=== PATIENT | female | born 1965 | race Caucasian/White ===

== ENCOUNTER 2016-11-29 12:18 | Inpatient (IN) | payer OTHER ==
[2016-11-29 13:29] VITALS: BMI 28.1
--- NOTE | 2016-11-29 15:28 | HP ---
CIWA Score - CIWA Score Nausea/Vomitin Muscle Tremors: 3 Anxiety: 3 Agitation: 3 Paroxysmal Sweats: 3 Orientation: 0-Oriented Tacttile Disturbances: 2-Mild Itch/Numbness/Burn Auditory Disturbances: 0-None Visual Disturbances: 0-None Headache: 2-Mild CIWA-Ar Total Score: 19 Admission ROS BHS - HPI Chief Complaint: I NEED TO STOP USING ALCOHOL AND I NEED HELP Allergies/Adverse Reactions: Allergies Allergy/AdvReac Type Severity Reaction Status Date / Time No Known Allergies Allergy Verified 01/20/15 20:10 History of Present Illness: 51 Y/O F PT WITH H/O CIRRHOSIS , LIVER MASS, ASTHMA , CHRONIC ALCOHOLISM AND HEROIN ABUSE SEEKING DETOX. Exam Limitations: No Limitations - Ebola screening Have you traveled outside of the country in the last 21 days: No Have you had contact with anyone from an Ebola affected area: No Have you been sick,other than usual withdrawal symptoms: No Do you have a fever: No - Review of Systems Constitutional: Malaise, Changes in sleep, Weakness EENT: reports: Dental Problems Respiratory: reports: Shortness of Breath, Wheezing Cardiac: reports: No Symptoms Reported GI: reports: Diarrhea, Nausea : reports: No Symptoms Reported Musculoskeletal: reports: No Symptoms Reported Integumentary: reports: No Symptoms Reported Neuro: reports: Headache, Tremors, Weakness Endocrine: reports: No Symptoms Reported Hematology: reports: No Symptoms Reported Psychiatric: reports: Depressed Other Systems: Reviewed and Negative Patient History - Patient Medical History Hx Anemia: No Hx Asthma: Yes (Pt is on MDI for asthma.) Hx Chronic Obstructive Pulmonary Disease (COPD): No Hx Cancer: No Hx Cardiac Disorders: No Hx Congestive Heart Failure: No Hx Hypertension: Yes (NOT ON MEDS AT PRESENT.) Hx Hypercholesterolemia: No Hx Pacemaker: No HX Cerebrovascular Accident: No Hx Seizures: No Hx Dementia: No Hx Diabetes: No Hx Gastrointestinal Disorders: No Hx Liver Disease: Yes Hx Genitourinary Disorders: No Hx Sexually Transmitted Disorders: No Hx Renal Disease (ESRD): No Hx Thyroid Disease: No Hx Human Immunodeficiency Virus (HIV): No Hx Hepatitis C: Yes Hx Depression: Yes Hx Suicide Attempt: No Hx Bipolar Disorder: No Hx Schizophrenia: No - Patient Surgical History Past Surgical History: No Hx Neurologic Surgery: No Hx Cataract Extraction: No Hx Cardiac Surgery: No Hx Lung Surgery: No Hx Breast Surgery: No Hx Breast Biopsy: No Hx Abdominal Surgery: No Hx Appendectomy: No Hx Cholecystectomy: No Hx Genitourinary Surgery: No Hx Section: No Hx Orthopedic Surgery: No Anesthesia Reaction: No - PPD History Previous Implant?: Yes Documented Results: Negative w/proof Implanted On Prior [facility] Admission?: No Date: 01/22/15 - Reproductive History Patient is a Female of Child Bearing Age (11 -55 yrs old): Yes Last Menstrual Period: 09/20/11 Patient : No - Smoking Cessation Smoking history: Current every day smoker Have you smoked in the past 12 months: Yes Aproximately how many cigarettes per day: 6 Cigars Per Day: 0 Hx Chewing Tobacco Use: No Initiated information on smoking cessation: Yes 'Breaking Loose' booklet given: 11/29/16 - Substance & Tx. History Hx Alcohol Use: Yes Hx Substance Use: Yes Substance Use Type: Alcohol, Heroin Hx Substance Use Treatment: Yes - Substances Abused Alcohol Route: Oral Frequency: Daily Amount used: 2 PINTS VODKA/ 3 BEERS Age of first use: 13 Date of Last Use: 11/29/16 Heroin Route: Inhalation Frequency: Daily Amount used: 10 BAGS Age of first use: 15 Date of Last Use: 11/27/16 Family Disease History - Family Disease History Family Disease History: Respiratory: Mother (ASTHMA) Admission Physical Exam S - Vital Signs Vital Signs: Vital Signs - 24 hr 11/29/16 13:27 Temperature 97.5 F L Pulse Rate 110 H Respiratory 20 Rate Blood Pressure 156/77 51 Y/O MF PT AOX3 , RESPONDING APPROPRIATELY BUT APPEARING ANXIOUS ,TIRED , - Physical General Appearance: Yes: Disheveled, Tremorous, Anxious HEENTM: Yes: EOMI, Hearing grossly Normal, Normal Voice, DELFINA Respiratory: Yes: Wheezing, Plerual Rub Breast: Yes: Breast Exam Deferred Cardiology: Yes: Regular Rhythm, S1, S2, Tachycardia Abdominal: Yes: Increased Bowel Sounds, Protuberent, Distended, Mass (TENDER RUQ ) Genitourinary: Yes: Frequency Back: Yes: Decreased Range of Motion Musculoskeletal: Yes: Back pain Extremities: Yes: Pedal Edema 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 intact, Fully Oriented, Alert, Motor Strength 5/5, Normal Response Integumentary: Yes: Moist Lymphatic: Yes: Within Normal Limits, Adenopathy - Diagnostic (1) Anxiety and depression Current Visit: Yes Status: Chronic (2) Asthma Current Visit: Yes Status: Chronic Qualifiers: Asthma severity: moderate persistent Asthma complication type: uncomplicated Qualified Code(s): J45.40 - Moderate persistent asthma, uncomplicated (3) Hepatomegaly Current Visit: Yes Status: Chronic (4) Alcohol dependence with uncomplicated withdrawal Current Visit: Yes Status: Chronic (5) Liver mass Current Visit: Yes Status: Chronic (6) Nicotine dependence Current Visit: Yes Status: Chronic Qualifiers: Nicotine product type: cigarettes Substance use status: uncomplicated Qualified Code(s): F17.210 - Nicotine dependence, cigarettes, uncomplicated (7) Opioid abuse Current Visit: Yes Status: Inactive Comment: NO OPIOIDS IN URINE TOX. Cleared for Admission S - Detox or Rehab [facility] Level of Care: Medically Managed [facility] Breath Alcohol Content Breath Alcohol Content: 0.132 Urine Pregancy Test - Result Urine Test Results: Negative- NO Line Present Urine Drug Screen - Results Drug Screen Negative: No Urine Drug Screen Results: BZO-Benzodiazepines
[2016-11-29] MEDS ORDERED: ACETAMINOPHEN 325 MG TABLET (FP) PO PRN (15:53)
[2016-11-29] MEDS ORDERED: IBUPROFEN 400 MG TABLET (FP) PO PRN (15:53)
[2016-11-29] MEDS ORDERED: hydrOXYzine PAMOATE 25 MG CAPSULE (FP) PO PRN (15:53)
[2016-11-29] MEDS ORDERED: NICOTINE POLACRILEX 2 MG GUM BC PRN (15:53)
[2016-11-29] MEDS ORDERED: chlordiazePOXIDE HCL 25 MG CAPSULE PO PRN (15:53)
[2016-11-29] MEDS ORDERED: MAG HYDROX/AL HYDROX/SIMETH 30 ML UNIT-DOSE CUP PO PRN (15:53)
[2016-11-29] MEDS ORDERED: guaiFENesin/D-METHORPHAN HB 10 ML UNIT-DOSE CUPS PO PRN (15:53)
[2016-11-29] MEDS ORDERED: P-EPHED 60MG/TRIPROLIDI 2.5MG TABLET PO PRN (15:53)
[2016-11-29] MEDS ORDERED: LOPERAMIDE HCL 2 MG CAPSULE PO PRN (15:53)
[2016-11-29] MEDS ORDERED: MENTHOL/PHENOL 1 EACH UD MM PRN (15:53)
[2016-11-29] MEDS ORDERED: MAGNESIUM CITRATE 300 ML BOTTLE PO PRN (15:53)
[2016-11-29] MEDS ORDERED: MAGNESIUM HYDROX 2400MG/30ML ORAL SUSPENSION 30 ML CUP PO PRN (15:53)
[2016-11-29] MEDS ORDERED: diphenhydrAMINE HCL 50 MG CAPSULE PO PRN (15:53)
[2016-11-29] MEDS ORDERED: ALBUTEROL SO4 2.5/IPRATROPIUM 0.5 INH SOL 3 ML VIAL.NEB. NEB PRN (16:01)
[2016-11-29] MEDS ORDERED: ALBUTEROL SO4 6.7 GM HFA INHALER IH PRN (16:01)
[2016-11-29] MEDS ORDERED: FUROSEMIDE 40 MG TABLET (FP) PO ONE (16:45)
[2016-11-29] MEDS ORDERED: SPIRONOLACTONE 25 MG TABLET (FP) PO ONE (16:45)
[2016-11-29] MEDS ORDERED: METHADONE HCL 10 MG TABLET (FOR DETOX USE ONLY) PO ONE ×2 (16:45→23:00)
[2016-11-29] MEDS: chlordiazePOXIDE HCL 25 MG CAPSULE PO SCH ×2 (18:07→22:00)
--- NOTE | 2016-11-29 19:16 | PN ---
BHS Progress Note Note: RECEIVED NURSE REQUESTS PPD X1 CONTINUE DETOX
[2016-11-29] MEDS ORDERED: THIAMINE HCL 100 MG TABLET (FP) PO SCH (22:00)
[2016-11-29] MEDS ORDERED: PANTOPRAZOLE 40 MG TABLET (FP) PO SCH (22:00)
[2016-11-29] MEDS: BUDESONIDE/FORMETEROL FUMARATE 80/4.5 mcg INHALER IH SCH (23:40)
[2016-11-30 04:07] LABS: URINE APPEARANCE CLEAR; URINE BILIRUBIN NEGATIVE (NEGATIVE); URINE BLOOD NEGATIVE (NEGATIVE); URINE COLOR LTYELLOW; URINE GLUCOSE (UA) NEGATIVE (NEGATIVE); URINE KETONE NEGATIVE (NEGATIVE); URINE LEUK ESTERASE NEGATIVE (NEGATIVE); URINE NITRITE NEGATIVE (NEGATIVE); URINE PROTEIN NEGATIVE (NEGATIVE); URINE UROBILINOGEN NEGATIVE E.U./dl (0.2-1.0)
[2016-11-30] MEDS: chlordiazePOXIDE HCL 25 MG CAPSULE PO SCH ×2 (05:29→11:04)
[2016-11-30] MEDS ORDERED: LACTULOSE 20 GM/30 ML UDC (FOR ORAL USE ONLY) PO ONE (08:00)
[2016-11-30 09:55] LABS: MCH 34.1 pg (25.7-33.7); MCHC 33.4 g/dl (32.0-36.0); MEAN CELL VOLUME 101.9 fl (80-96); MEAN PLT VOLUME 9.3 fl (7.5-11.1); RDW 13.9 % (11.6-15.6); WHITE BLOOD COUNT 11.9 K/mm3 (4.0-10.0)
--- NOTE | 2016-11-30 09:56 | PN ---
S Progress Note Note: Pt states I need to leave this place is not for me. pt signed out AMA.
--- NOTE | 2016-11-30 09:58 | DS ---
[facility] Detox Discharge Summary Admission Date: 11/29/16 - History Present History: Alcohol Dependence - Physical Exam Results Vital Signs: Vital Signs Temperature 99.3 F 11/30/16 06:02 Pulse Rate 100 H 11/30/16 06:30 Respiratory Rate 18 11/30/16 06:30 Blood Pressure 145/77 11/30/16 06:02 O2 Sat by Pulse Oximetry (%) - Medication Discharge Medications: Ambulatory Orders NK [No Known Home Medication] 01/22/15 - Diagnosis (1) Alcohol dependence with uncomplicated withdrawal Current Visit: Yes Status: Chronic (2) Anxiety and depression Current Visit: Yes Status: Chronic (3) Asthma Current Visit: Yes Status: Chronic Qualifiers: Asthma severity: moderate persistent Asthma complication type: uncomplicated Qualified Code(s): J45.40 - Moderate persistent asthma, uncomplicated (4) Hepatomegaly Current Visit: Yes Status: Chronic (5) Liver mass Current Visit: Yes Status: Chronic (6) Nicotine dependence Current Visit: Yes Status: Chronic Qualifiers: Nicotine product type: cigarettes Substance use status: uncomplicated Qualified Code(s): F17.210 - Nicotine dependence, cigarettes, uncomplicated (7) Opioid abuse Current Visit: Yes Status: Inactive (8) Bereavement Current Visit: No Status: Acute (9) Alcohol dependence Current Visit: No Status: Chronic (10) Hepatitis C Current Visit: No Status: Chronic (11) Opiate dependence Current Visit: No Status: Chronic - AMA Did Patient Leave Against Medical Advice: Yes (Did not want to continue detox)
[2016-11-30] MEDS ORDERED: METHADONE HCL 10 MG TABLET (FOR DETOX USE ONLY) PO SCH (10:00)
[2016-11-30] MEDS ORDERED: PRENATAL VITAMINS W/ FOLIC ACID TABLET (FP) PO SCH (10:00)
[2016-11-30] MEDS ORDERED: SPIRONOLACTONE 25 MG TABLET (FP) PO SCH (10:00)
[2016-11-30] MEDS ORDERED: FUROSEMIDE 40 MG TABLET (FP) PO SCH (10:00)
[2016-11-30] MEDS ORDERED: NICOTINE 14 MG/24 HOURS TOPICAL PATCH TD SCH (10:00)
[2016-11-30 10:02] VITALS: BP 129/64; PULSE 105; TEMP 98
[2016-11-30 10:37] LABS: ALBUMIN 3.4 g/dl (3.4-5.0); ALK PHOS 306 U/L (45-117); ANION GAP 14 (8-16); BILIRUBIN,TOTAL 1.2 mg/dL (0.2-1.0); CALCIUM 8.9 mg/dL (8.5-10.1); CO2 27 mmol/L (21-32); CREATININE 0.4 mg/dL (0.55-1.02); GLUCOSE,RANDOM 172 mg/dL (74-106); SGOT/AST 92 U/L (15-37); SGPT/ALT 34 U/L (12-78); TOT PROT 7.9 g/dl (6.4-8.2)
[2016-11-30] MEDS: BUDESONIDE/FORMETEROL FUMARATE 80/4.5 mcg INHALER IH SCH (11:04)
--- NOTE | 2016-11-30 11:58 | CONSULT ---
[facility] Psychiatric Consult - Data Date of interview: 11/30/16 Admission source: [facility] Identifying data: Patient not found on the unit.Staff reports that Ms Verduzco has left the program earlier.Not available for a psychiatric interview.
--- NOTE | 2016-11-30 13:41 | EKG ---
Test Reason : Blood Pressure : / mmHG Vent. Rate : 102 BPM Atrial Rate : 102 BPM P-R Int : 154 ms QRS Dur : 066 ms QT Int : 374 ms P-R-T Axes : 053 049 042 degrees QTc Int : 487 ms SINUS TACHYCARDIA OTHERWISE NORMAL ECG WHEN COMPARED WITH ECG OF 29-NOV-2016 17:18, NO SIGNIFICANT CHANGE WAS FOUND Confirmed by CUCO PATRICIO MD ([id number]) on 11/30/2016 1:40:49 PM Referred By: Confirmed By:CUCO PATRICIO MD
--- NOTE | 2016-11-30 13:43 | EKG ---
Test Reason : Blood Pressure : / mmHG Vent. Rate : 109 BPM Atrial Rate : 109 BPM P-R Int : 174 ms QRS Dur : 066 ms QT Int : 346 ms P-R-T Axes : 071 049 039 degrees QTc Int : 465 ms SINUS TACHYCARDIA POSSIBLE LEFT ATRIAL ENLARGEMENT T WAVE ABNORMALITY, CONSIDER INFERIOR ISCHEMIA ABNORMAL ECG NO PREVIOUS ECGS AVAILABLE Confirmed by SINTIA OVIEDO, CUCO ([id number]) on 11/30/2016 1:42:52 PM Referred By: Confirmed By:CUCO PATRICIO MD
[2016-11-30 14:48] LABS: PLATELET ESTIMATE ADEQUATE (NORMAL)
[2016-11-30] MEDS ORDERED: chlordiazePOXIDE HCL 25 MG CAPSULE PO SCH (17:00)
[2016-12-01] MEDS ORDERED: METHADONE HCL 5 MG TABLET (FOR DETOX USE ONLY) PO SCH (10:00)
[2016-12-01] MEDS ORDERED: chlordiazePOXIDE 5 MG CAPSULE PO SCH (17:00)
[2016-12-02] MEDS ORDERED: chlordiazePOXIDE HCL 10 MG CAPSULE PO SCH (17:00)
[2016-12-03] MEDS ORDERED: METHADONE HCL 10 MG TABLET (FOR DETOX USE ONLY) PO SCH (10:00)
[2016-12-04] MEDS ORDERED: METHADONE HCL 5 MG TABLET (FOR DETOX USE ONLY) PO SCH (06:00)
== END 2016-11-30 10:00 | disposition left against medical advice (07) | DRG 770 ==
LOC: YASAS 12:18 → Y6N 15:15
PROVIDERS: ADMIT Internal Medicine Addiction Medicine; ATTEND Internal Medicine Addiction Medicine
PROC: HZ2ZZZZ Detoxification Services for Substance Abuse Treatment (ICD-10-PCS; principal; 2016-11-30)
DX: F11.10 Opioid abuse, uncomplicated (principal); F10.230 Alcohol dependence with withdrawal, uncomplicated; F17.210 Nicotine dependence, cigarettes, uncomplicated; I10 Essential (primary) hypertension; J45.40 Moderate persistent asthma, uncomplicated; R16.0 Hepatomegaly, not elsewhere classified
CPT/HCPCS: 36415; 80053; 81003; 85027; 86593; 93005; 93010

== ENCOUNTER 2018-04-27 11:36 | Inpatient (IN) | payer OTHER ==
[2018-04-27 11:57] VITALS: BMI 27.1
--- NOTE | 2018-04-27 12:50 | HP ---
COWS - Scale Resting Pulse: 2= MT 101-120 Sweatin= Chills/Flushing Restless Observation: 3= Extraneous Movement Pupil Size: 1= Pupils >than Normal Bone or Joint Aches: 2= Severe Diffuse Aches Runny Nose/ Eye Tearin= Runny Nose/Eyes GI Upset > 30mins: 3= Vomiting/Diarrhea Tremor Observation: 2= Slight Tremor Visible Yawning Observation: 2= >3x During Session Anxiety or Irritability: 2=Irritable/Anxious Goose Flesh Skin: 0=Smooth Skin COWS Score: 20 CIWA Score - CIWA Score Nausea/Vomitin Muscle Tremors: 3 Anxiety: 3 Agitation: 3 Paroxysmal Sweats: 1-Minimal Palms Moist Orientation: 0-Oriented Tacttile Disturbances: 1-Very Mild Itch/Numbness Auditory Disturbances: 1-Very Mild Visual Disturbances: 0-None Headache: 2-Mild CIWA-Ar Total Score: 17 Admission ROS BHS - HPI Chief Complaint: i need help help to stop using heroin and alcohol Allergies/Adverse Reactions: Allergies Allergy/AdvReac Type Severity Reaction Status Date / Time No Known Allergies Allergy Verified 03/11/18 20:28 History of Present Illness: this 52 years old female with heroin and alcohol dependence,seeking detox, withdrawal symptom,last detox [facility] 03/11/18 to 03/14/18 syncope asthma nicotine dependence multiple admissions to detox but relapsing weight loss longest sobriety 3 years Exam Limitations: No Limitations - Ebola screening Have you traveled outside of the country in the last 21 days: No Have you been sick,other than usual withdrawal symptoms: No - Review of Systems Constitutional: Chills, Diaphoresis, Loss of Appetite, Malaise, Night Sweats, Changes in sleep, Weakness, Unintentional Wgt. Loss EENT: reports: Tearing, Nose Congestion Respiratory: reports: No Symptoms reported, Other (asthma history) Cardiac: reports: Palpitations GI: reports: Diarrhea, Nausea, Vomiting, Abdominal cramping : reports: No Symptoms Reported Musculoskeletal: reports: Back Pain, Joint Pain, Muscle Pain, Joint Stiffness Integumentary: reports: Dryness Neuro: reports: Headache, Tremors Endocrine: reports: No Symptoms Reported Hematology: reports: No Symptoms Reported Psychiatric: reports: No Sypmtoms Reported, Judgement Intact, Mood/Affect Appropiate, Orientated x3, Anxious, Depressed Patient History - Patient Medical History Hx Anemia: No Hx Asthma: Yes (Pt is on MDI for asthma.) Hx Chronic Obstructive Pulmonary Disease (COPD): No Hx Cancer: No Hx Cardiac Disorders: No Hx Congestive Heart Failure: No Hx Hypertension: Yes (Not on medication) Hx Hypercholesterolemia: No Hx Pacemaker: No HX Cerebrovascular Accident: No Hx Seizures: No Hx Dementia: No Hx Diabetes: No Hx Gastrointestinal Disorders: No Hx Liver Disease: Yes (Hep. C) Hx Genitourinary Disorders: No Hx Sexually Transmitted Disorders: No Hx Renal Disease (ESRD): No Hx Thyroid Disease: No Hx Human Immunodeficiency Virus (HIV): No (last 03/22 negative) Hx Hepatitis C: Yes (Not on medication) Hx Depression: Yes (Not on medication) Hx Suicide Attempt: No (Denies suicide attempt and suicidal ideation at this time) Hx Bipolar Disorder: No Hx Schizophrenia: No Other Medical History: insomnia,anxiety,no suicidal,no homicidal - Patient Surgical History Past Surgical History: No Hx Neurologic Surgery: No Hx Cataract Extraction: No Hx Cardiac Surgery: No Hx Lung Surgery: No Hx Breast Surgery: No Hx Breast Biopsy: No Hx Abdominal Surgery: No Hx Appendectomy: No Hx Cholecystectomy: No Hx Genitourinary Surgery: No Hx Section: No Hx Orthopedic Surgery: No Anesthesia Reaction: No - PPD History Previous Implant?: Yes Documented Results: Negative w/proof Implanted On Prior [facility] Admission?: Yes Date: 03/14/18 Results: 0 mm PPD to be Administered?: No - Reproductive History Patient is a Female of Child Bearing Age (11 -55 yrs old): Yes Last Menstrual Period: 09/20/11 Patient : No - Smoking Cessation Smoking history: Current every day smoker Have you smoked in the past 12 months: Yes Aproximately how many cigarettes per day: 10 Cigars Per Day: 0 Hx Chewing Tobacco Use: No Initiated information on smoking cessation: Yes 'Breaking Loose' booklet given: 04/27/18 - Substance & Tx. History Hx Alcohol Use: Yes Hx Substance Use: Yes Substance Use Type: Alcohol, Heroin Hx Substance [facility]) Family Disease History - Family Disease History Family Disease History: [place]: Mother (ASTHMA), Respiratory: Mother, Sister Admission Physical Exam BHS - Vital Signs Vital Signs: Vital Signs - 24 hr 04/27/18 11:53 Temperature 98.5 F Pulse Rate 105 H Respiratory 20 Rate Blood Pressure 164/86 - Physical General Appearance: Yes: Moderate Distress, Tremorous, Irritable, Sweating, Anxious HEENTM: Yes: Normal ENT Inspection, DELFINA, Pharynx Normal Respiratory: Yes: Lungs Clear, Normal Breath Sounds, No Respiratory Distress Neck: Yes: Within Normal Limits, Supple, Trachea in good position Breast: Yes: Breast Exam Deferred Cardiology: Yes: Tachycardia Abdominal: Yes: Within Normal Limits, Normal Bowel Sounds, Non Tender, Soft Genitourinary: Yes: Within Normal Limits Back: Yes: Muscle Spasm Musculoskeletal: Yes: Back pain, Joint Stiffness, Muscle Pain Extremities: Yes: Normal Range of Motion, Tremors 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, Fully Oriented, Alert, Motor Strength 5/5 Integumentary: Yes: Dry, Track Campos Lymphatic: Yes: Within Normal Limits - Diagnostic (1) Opioid dependence with withdrawal Current Visit: No Status: Acute (2) Alcohol dependence with uncomplicated withdrawal Current Visit: No Status: Acute (3) Nicotine dependence Current Visit: No Status: Acute Qualifiers: Nicotine product type: cigarettes Substance use status: in withdrawal Qualified Code(s): F17.213 - Nicotine dependence, cigarettes, with withdrawal (4) Anxiety and depression Current Visit: No Status: Chronic (5) Asthma Current Visit: No Status: Chronic Qualifiers: Asthma severity: mild Asthma persistence: intermittent Asthma complication type: with status asthmaticus Qualified Code(s): J45.22 - Mild intermittent asthma with status asthmaticus (6) HTN (hypertension) Current Visit: No Status: Chronic Qualifiers: Hypertension type: essential hypertension Qualified Code(s): I10 - Essential (primary) hypertension (7) Hepatitis C Current Visit: No Status: Chronic Qualifiers: Viral hepatitis chronicity: carrier Qualified Code(s): B18.2 - Chronic viral hepatitis C (8) Weight loss Current Visit: Yes Status: Acute Cleared for Admission BHS - Detox or Rehab S Level of Care: Medically Managed Detox Regimen/Protocol: Methadone/Librium S Breath Alcohol Content Breath Alcohol Content: 0.037 Urine Pregancy Test - Result Urine Test Results: Negative- NO Line Present Urine Drug Screen - Results Drug Screen Negative: No Urine Drug Screen Results: OPI-Opiates, BZO-Benzodiazepines
[2018-04-27] MEDS ORDERED: LOPERAMIDE HCL 2 MG CAPSULE PO PRN (13:10)
[2018-04-27] MEDS ORDERED: MAG HYDROX/AL HYDROX/SIMETH 30 ML UNIT-DOSE CUP PO PRN (13:10)
[2018-04-27] MEDS ORDERED: IBUPROFEN 400 MG TABLET (FP) PO PRN (13:10)
[2018-04-27] MEDS ORDERED: MAGNESIUM HYDROX 2400MG/30ML ORAL SUSPENSION 30 ML CUP PO PRN (13:10)
[2018-04-27] MEDS ORDERED: MAGNESIUM CITRATE 300 ML BOTTLE PO PRN (13:10)
[2018-04-27] MEDS ORDERED: MENTHOL/PHENOL 1 EACH UD MM PRN (13:10)
[2018-04-27] MEDS ORDERED: ACETAMINOPHEN 325 MG TABLET (FP) PO PRN (13:10)
[2018-04-27] MEDS ORDERED: guaiFENesin/D-METHORPHAN HB 10 ML UNIT-DOSE CUPS PO PRN (13:10)
[2018-04-27] MEDS ORDERED: P-EPHED 60MG/TRIPROLIDI 2.5MG TABLET PO PRN (13:10)
[2018-04-27] MEDS ORDERED: ALBUTEROL SO4 8 GM HFA INHALER IH PRN (13:15)
--- NOTE | 2018-04-27 13:19 | CONSULT ---
[facility] Psychiatric Consult - Data Date of interview: 04/27/18 Admission source: [facility] Identifying data: This is a52 years old female, , mother of three, homeless, on PA, with psychiatric hospitalization history, multiple medical problems, with heroin and alcohol, Nicotine dependence,reporting withdrawal symptoms, is seeking detox, Substance Abuse History: - Smoking Cessation. Smoking history: Current every day smoker. Have you smoked in the past 12 months: Yes. Aproximately how many cigarettes per day: 10. Cigars Per Day: 0. Hx Chewing Tobacco Use: No. Initiated information on smoking cessation: Yes. 'Breaking Loose' booklet given : 04/27/18. - Substance & Tx. History. Hx Alcohol Use: Yes. Hx Substance Use : Yes. Substance Use Type: Alcohol, Heroin. Hx Substance Use Treatment: Yes ( [facility] 03/11/18 to 03/14/18) Medical History: Hepatomegaly, Liver mass history, Weight loss history, HepC+, HTN Psychiatric History: Patient reports history of depression and anxiety, reports moast recent psychiatric hospitalization for safety on about 2-3 years ago at [facility], reports no medications takign prior to admission. Patient denies sucidal and homiciadal history Physical/Sexual Abuse/Trauma History: Denies Additional Comment: Obsaervation. Detox Unit Care Protocol Mental Status Exam - Mental Status Exam Alert and Oriented to: Person Cognitive Function: Fair Patient Appearance: Unkempt Mood: Sad Affect: Flat Patient Behavior: Cooperative Speech Pattern: Delayed Voice Loudness: Mildly Soft/Quiet Thought Process: Circumstantial Thought Disorder: Being Controlled Hallucinations: Denies Suicidal Ideation: Denies Homicidal Ideation: Denies Insight/Judgement: Fair Sleep: Difficulty falling asleep Appetite: Weight loss Muscle strength/Tone: Mild Hypotonicity Gait/Station: Shuffling Additional Comments: Obsaervation. Detox Unit Care Protocol Psychiatric Findings - Problem List ([place] 1, 2,3) (1) Weight loss Current Visit: Yes Status: Acute (2) Alcohol dependence with uncomplicated withdrawal Current Visit: No Status: Acute (3) Nicotine dependence Current Visit: No Status: Acute Qualifiers: Nicotine product type: cigarettes Substance use status: in withdrawal Qualified Code(s): F17.213 - Nicotine dependence, cigarettes, with withdrawal (4) Opioid dependence with withdrawal Current Visit: No Status: Acute (5) Anxiety and depression Current Visit: No Status: Chronic (6) Asthma Current Visit: No Status: Chronic Qualifiers: Asthma severity: mild Asthma persistence: intermittent Asthma complication type: with status asthmaticus Qualified Code(s): J45.22 - Mild intermittent asthma with status asthmaticus (7) HTN (hypertension) Current Visit: No Status: Chronic Qualifiers: Hypertension type: essential hypertension Qualified Code(s): I10 - Essential (primary) hypertension (8) Hepatitis C Current Visit: No Status: Chronic Qualifiers: Viral hepatitis chronicity: carrier Qualified Code(s): B18.2 - Chronic viral hepatitis C (9) Hepatomegaly Current Visit: No Status: Chronic (10) Liver mass Current Visit: No Status: Chronic (11) Opiate dependence Current Visit: No Status: Chronic - Initial Treatment Plan Initial Treatment Plan: Observation. Detox Unit Care [place]
[2018-04-27] MEDS ORDERED: METHADONE HCL 10 MG TABLET (FOR DETOX USE ONLY) PO ONE ×2 (13:55→23:00)
[2018-04-27] MEDS: cloNIDine HCL 0.1 MG TABLET PO SCH ×2 (14:18→22:12)
[2018-04-27] MEDS: CYCLOBENZAPRINE HCL 10 MG TABLET (FP) PO PRN ×2 (14:18→20:43)
[2018-04-27] MEDS: chlordiazePOXIDE HCL 25 MG CAPSULE PO PRN ×2 (14:19→19:23)
[2018-04-27] MEDS: NICOTINE 21 MG/24 HOURS TOPICAL PATCH TD SCH (14:20)
--- NOTE | 2018-04-27 16:00 | EKG ---
Test Reason : Blood Pressure : / mmHG Vent. Rate : 106 BPM Atrial Rate : 106 BPM P-R Int : 154 ms QRS Dur : 076 ms QT Int : 366 ms P-R-T Axes : 072 057 045 degrees QTc Int : 486 ms SINUS TACHYCARDIA OTHERWISE NORMAL ECG WHEN COMPARED WITH ECG OF 11-MAR-2018 23:43, NO SIGNIFICANT CHANGE WAS FOUND Confirmed by Elmira Chen ([id number]) on 04/27/2018 4:00:04 PM Referred By: Confirmed By:Elmira Chen
[2018-04-27] MEDS: chlordiazePOXIDE HCL 25 MG CAPSULE PO SCH ×2 (17:35→22:12)
[2018-04-27] MEDS: hydrOXYzine PAMOATE 25 MG CAPSULE (FP) PO PRN (17:36)
[2018-04-27 17:58] LABS: URINE APPEARANCE CLEAR; URINE BILIRUBIN NEGATIVE (<2.0 mg/dL); URINE COLOR STRAW; URINE GLUCOSE (UA) NEGATIVE (NEGATIVE); URINE KETONE NEGATIVE (NEGATIVE); URINE LEUK ESTERASE NEGATIVE (NEGATIVE); URINE NITRITE NEGATIVE (NEGATIVE); URINE PROTEIN NEGATIVE (NEGATIVE); URINE UROBILINOGEN NEGATIVE mg/dL (0.2-1.0)
[2018-04-27] MEDS: THIAMINE HCL 100 MG TABLET (FP) PO SCH (22:12)
[2018-04-27] MEDS: MELATONIN 5 MG TABLETS PO PRN (22:14)
[2018-04-28] MEDS: chlordiazePOXIDE HCL 25 MG CAPSULE PO PRN (01:35)
[2018-04-28] MEDS: hydrOXYzine PAMOATE 25 MG CAPSULE (FP) PO PRN (03:12)
[2018-04-28] MEDS: chlordiazePOXIDE HCL 25 MG CAPSULE PO SCH ×4 (05:50→22:08)
--- NOTE | 2018-04-28 09:02 | PN ---
S CIWA - CIWA Score Nausea/Vomitin Muscle Tremors: 3 Anxiety: 2 Agitation: 2 Paroxysmal Sweats: 1-Minimal Palms Moist Orientation: 0-Oriented Tacttile Disturbances: 1-Very Mild Itch/Numbness Auditory Disturbances: 1-Very Mild Visual Disturbances: 0-None Headache: 2-Mild CIWA-Ar Total Score: 15 S Progress Note (SOAP) Subjective: alert,irritable,anxious,interrupted sleep,tremor,pain in the body and back Objective: 04/28/18 08:58 Vital Signs Temperature 97.5 F L 04/28/18 07:01 Pulse Rate 81 04/28/18 07:01 Respiratory Rate 18 04/28/18 07:01 Blood Pressure 113/58 04/28/18 07:01 O2 Sat by Pulse Oximetry (%) ekg sinus tachycardia 106/min qt/qtc 366/486 no chest pain,no sob,no dizziness Laboratory Last Values Urine Color Straw 04/27/18 15:41 Urine Appearance Clear 04/27/18 15:41 Urine pH 9.0 (5.0-8.0) H 04/27/18 15:41 Ur Specific [place] 1.028 (1.001-1.035) 04/27/18 15:41 Urine Protein Negative (NEGATIVE) 04/27/18 15:41 Urine Glucose (UA) Negative (NEGATIVE) 04/27/18 15:41 Urine Ketones Negative (NEGATIVE) 04/27/18 15:41 Urine Blood Negative (NEGATIVE) 04/27/18 15:41 Urine Nitrite Negative (NEGATIVE) 04/27/18 15:41 Urine Bilirubin Negative (<2.0 mg/dL) 04/27/18 15:41 Urine Urobilinogen Negative mg/dL (0.2-1.0) 04/27/18 15:41 Ur Leukocyte Esterase Negative (NEGATIVE) 04/27/18 15:41 labs pending Assessment: 04/28/18 09:01 withdrawal symptom Plan: continue detox
[2018-04-28] MEDS ORDERED: METHADONE HCL 10 MG TABLET (FOR DETOX USE ONLY) PO SCH (10:00)
[2018-04-28 10:04] LABS: HEMATOCRIT 32.8 % (32.4-45.2); HEMOGLOBIN 10.6 GM/dL (10.7-15.3); MCH 29.9 pg (25.7-33.7); MCHC 32.4 g/dl (32.0-36.0); MEAN CELL VOLUME 92.3 fl (80-96); MEAN PLT VOLUME 9.4 fl (7.5-11.1); PLATELET COUNT 138 K/MM3 (134-434); RBC 3.56 M/mm3 (3.60-5.2); RDW 16.9 % (11.6-15.6)
[2018-04-28 10:15] LABS: CHLORIDE 106 mmol/L (98-107); POTASSIUM 3.6 mmol/L (3.5-5.1); SODIUM 142 mmol/L (136-145)
[2018-04-28 10:24] LABS: ALBUMIN 3.3 g/dl (3.4-5.0); ALK PHOS 228 U/L (45-117); ANION GAP 11 MMOL/L (8-16); BILIRUBIN,TOTAL 1.8 mg/dL (0.2-1.0); BLOOD UREA NITROGEN 4 mg/dL (7-18); CALCIUM 8.5 mg/dL (8.5-10.1); CO2 25 mmol/L (21-32); CREATININE 0.4 mg/dL (0.55-1.02); GLUCOSE,RANDOM 166 mg/dL (74-106); SGOT/AST 103 U/L (15-37); SGPT/ALT 37 U/L (12-78)
[2018-04-28] MEDS: cloNIDine HCL 0.1 MG TABLET PO SCH ×2 (10:40→22:08)
[2018-04-28] MEDS: PRENATAL VITAMINS W/ FOLIC ACID TABLET (FP) PO SCH (10:40)
[2018-04-28] MEDS: NICOTINE 21 MG/24 HOURS TOPICAL PATCH TD SCH (10:40)
[2018-04-28] MEDS: THIAMINE HCL 100 MG TABLET (FP) PO SCH (22:08)
[2018-04-28] MEDS: MELATONIN 5 MG TABLETS PO PRN (22:09)
[2018-04-29] MEDS: chlordiazePOXIDE HCL 25 MG CAPSULE PO SCH ×2 (05:08→10:35)
[2018-04-29] MEDS: PRENATAL VITAMINS W/ FOLIC ACID TABLET (FP) PO SCH (10:35)
[2018-04-29] MEDS: cloNIDine HCL 0.1 MG TABLET PO SCH ×2 (10:35→22:58)
[2018-04-29] MEDS: METHADONE HCL 5 MG TABLET (FOR DETOX USE ONLY) PO SCH (10:35)
[2018-04-29] MEDS: NICOTINE 21 MG/24 HOURS TOPICAL PATCH TD SCH (10:35)
[2018-04-29] MEDS: CYCLOBENZAPRINE HCL 10 MG TABLET (FP) PO PRN ×2 (10:40→22:57)
--- NOTE | 2018-04-29 10:43 | PN ---
S CIWA - CIWA Score Nausea/Vomitin Muscle Tremors: 3 Anxiety: 1-Mildly Anxious Agitation: 2 Paroxysmal Sweats: 2 Orientation: 0-Oriented Tacttile Disturbances: 2-Mild Itch/Numbness/Burn Auditory Disturbances: 0-None Visual Disturbances: 0-None Headache: 2-Mild CIWA-Ar Total Score: 15 BHS COWS - Scale Resting Pulse: 0= ND 80 or Below Sweatin=Flushed/Facial Moisture Restless Observation: 1= Difficult to Sit Still Pupil Size: 0= Normal to Room Light Bone or Joint Aches: 2= Severe Diffuse Aches Runny Nose/ Eye Tearin= Nasal Congestion GI Upset > 30mins: 2= Nausea/Diarrhea Tremor Observation of Outstretched Hands: 2= Slight Tremor Visible Yawning Observation: 1= 1-2x During Session Anxiety or Irritability: 2=Irritable/Anxious Goose Flesh Skin: 3=Piloerection COWS Score: 16 BHS Progress Note (SOAP) Subjective: Interrupted sleep, muscle/bone pain, abdominal cramps Objective: 04/29/18 10:42 Vital Signs - 8 hr 04/29/18 04/29/18 04/29/18 03:30 06:00 06:30 Temperature 96.6 F L Pulse Rate 75 Respiratory 18 18 18 Rate Blood Pressure 126/59 04/29/18 09:14 Temperature 97.9 F Pulse Rate 74 Respiratory 18 Rate Blood Pressure 130/57 Laboratory Last Values WBC 4.0 K/mm3 (4.0-10.0) 04/28/18 06:00 RBC 3.56 M/mm3 (3.60-5.2) L 04/28/18 06:00 Hgb 10.6 GM/dL (10.7-15.3) L 04/28/18 06:00 Hct 32.8 % (32.4-45.2) 04/28/18 06:00 MCV 92.3 fl (80-96) D 04/28/18 06:00 MCH 29.9 pg (25.7-33.7) D 04/28/18 06:00 MCHC 32.4 g/dl (32.0-36.0) 04/28/18 06:00 RDW 16.9 % (11.6-15.6) H 08/24/18 06:00 Plt Count 138 K/MM3 (134-434) D 04/28/18 06:00 MPV 9.4 fl (7.5-11.1) 04/28/18 06:00 Sodium 142 mmol/L (136-145) 04/28/18 06:00 Potassium 3.6 mmol/L (3.5-5.1) 04/28/18 06:00 Chloride 106 mmol/L (98-107) 04/28/18 06:00 Carbon Dioxide 25 mmol/L (21-32) 04/28/18 06:00 Anion Gap 11 MMOL/L (8-16) 04/28/18 06:00 BUN 4 mg/dL (7-18) L 04/28/18 06:00 Creatinine 0.4 mg/dL (0.55-1.02) L 04/28/18 06:00 Creat Clearance w eGFR > 60 (>60) 04/28/18 06:00 Random Glucose 166 mg/dL (74-106) H 04/28/18 06:00 Calcium 8.5 mg/dL (8.5-10.1) 04/28/18 06:00 Total Bilirubin 1.8 mg/dL (0.2-1.0) H 04/28/18 06:00 AST 103 U/L (15-37) H 04/28/18 06:00 ALT 37 U/L (12-78) 04/28/18 06:00 Alkaline Phosphatase 228 U/L (45-117) H 04/28/18 06:00 Total Protein 8.0 g/dl (6.4-8.2) 04/28/18 06:00 Albumin 3.3 g/dl (3.4-5.0) L 04/28/18 06:00 Urine Color Straw 04/27/18 15:41 Urine Appearance Clear 04/27/18 15:41 Urine pH 9.0 (5.0-8.0) H 04/27/18 15:41 Ur Specific [place] 1.028 (1.001-1.035) 04/27/18 15:41 Urine Protein Negative (NEGATIVE) 04/27/18 15:41 Urine Glucose (UA) Negative (NEGATIVE) 04/27/18 15:41 Urine Ketones Negative (NEGATIVE) 04/27/18 15:41 Urine Blood Negative (NEGATIVE) 04/27/18 15:41 Urine Nitrite Negative (NEGATIVE) 04/27/18 15:41 Urine Bilirubin Negative (<2.0 mg/dL) 04/27/18 15:41 Urine Urobilinogen Negative mg/dL (0.2-1.0) 04/27/18 15:41 Ur Leukocyte Esterase Negative (NEGATIVE) 04/27/18 15:41 RPR Titer Nonreactive (NONREACTIVE) 04/28/18 06:00 Labs noted Assessment: 04/29/18 10:42 Withdrawal sx Plan: Continue detox
[2018-04-29] MEDS: chlordiazePOXIDE 5 MG CAPSULE PO SCH ×2 (18:24→23:45)
[2018-04-29] MEDS: THIAMINE HCL 100 MG TABLET (FP) PO SCH (22:57)
[2018-04-29] MEDS: chlordiazePOXIDE HCL 25 MG CAPSULE PO PRN (22:57)
[2018-04-29] MEDS: hydrOXYzine PAMOATE 25 MG CAPSULE (FP) PO PRN (22:57)
[2018-04-30] MEDS: chlordiazePOXIDE HCL 25 MG CAPSULE PO PRN (00:34)
[2018-04-30] MEDS: chlordiazePOXIDE 5 MG CAPSULE PO SCH ×2 (05:35→10:07)
[2018-04-30] MEDS: PRENATAL VITAMINS W/ FOLIC ACID TABLET (FP) PO SCH (10:07)
[2018-04-30] MEDS: cloNIDine HCL 0.1 MG TABLET PO SCH ×2 (10:07→22:54)
[2018-04-30] MEDS: NICOTINE 21 MG/24 HOURS TOPICAL PATCH TD SCH (10:07)
[2018-04-30] MEDS: METHADONE HCL 5 MG TABLET (FOR DETOX USE ONLY) PO SCH (10:07)
--- NOTE | 2018-04-30 11:40 | PN ---
S Progress Note (SOAP) Subjective: c/o bone pain,increased bowel movements, tremors Objective: 04/30/18 11:36 Alert and oriented. Respirations quiet and unlabored. Lab Results WBC 4.0 K/mm3 (4.0-10.0) 04/28/18 06:00 RBC 3.56 M/mm3 (3.60-5.2) L 04/28/18 06:00 Hgb 10.6 GM/dL (10.7-15.3) L 04/28/18 06:00 Hct 32.8 % (32.4-45.2) 04/28/18 06:00 MCV 92.3 fl (80-96) D 04/28/18 06:00 MCHC 32.4 g/dl (32.0-36.0) 04/28/18 06:00 RDW 16.9 % (11.6-15.6) H 04/28/18 06:00 Plt Count 138 K/MM3 (134-434) D 04/28/18 06:00 Sodium 142 mmol/L (136-145) 04/28/18 06:00 Potassium 3.6 mmol/L (3.5-5.1) 04/28/18 06:00 Chloride 106 mmol/L (98-107) 04/28/18 06:00 Carbon Dioxide 25 mmol/L (21-32) 04/28/18 06:00 Anion Gap 11 MMOL/L (8-16) 04/28/18 06:00 BUN 4 mg/dL (7-18) L 04/28/18 06:00 Creatinine 0.4 mg/dL (0.55-1.02) L 04/28/18 06:00 Random Glucose 166 mg/dL (74-106) H 04/28/18 06:00 Calcium 8.5 mg/dL (8.5-10.1) 04/28/18 06:00 Vital Signs - 24 hr 04/29/18 04/29/18 04/29/18 14:39 17:31 22:09 Temperature 98.2 F 98.2 F 98.1 F Pulse Rate 84 77 81 Respiratory 18 18 16 Rate Blood Pressure 120/56 111/54 123/58 04/30/18 04/30/18 04/30/18 00:30 03:30 06:00 Temperature 98.1 F Pulse Rate 86 Respiratory 18 18 16 Rate Blood Pressure 117/67 04/30/18 10:00 Temperature 98.1 F Pulse Rate 81 Respiratory 16 Rate Blood Pressure 110/57 Lab reviewed, Assessment: Alcohol and opiate withdrawal symptoms. 04/30/18 11:38 Plan: Continue detox.
[2018-04-30] MEDS: chlordiazePOXIDE HCL 10 MG CAPSULE PO SCH ×2 (17:20→22:54)
[2018-04-30] MEDS: THIAMINE HCL 100 MG TABLET (FP) PO SCH (22:54)
[2018-04-30] MEDS: MELATONIN 5 MG TABLETS PO PRN (22:56)
[2018-05-01] MEDS: chlordiazePOXIDE HCL 10 MG CAPSULE PO SCH ×2 (06:00→10:18)
[2018-05-01] MEDS ORDERED: METHADONE HCL 10 MG TABLET (FOR DETOX USE ONLY) PO SCH (10:00)
--- NOTE | 2018-05-01 10:07 | PN ---
S Progress Note (SOAP) Subjective: alert,irritable,anxious,interrupted sleep Objective: 05/01/18 10:06 Vital Signs Temperature 99.9 F H 05/01/18 09:19 Pulse Rate 83 05/01/18 09:19 Respiratory Rate 16 05/01/18 09:19 Blood Pressure 113/61 05/01/18 09:19 O2 Sat by Pulse Oximetry (%) Assessment: 05/01/18 10:06 withdrawal symptom Plan: continue detox,discharge in am
[2018-05-01] MEDS: cloNIDine HCL 0.1 MG TABLET PO SCH ×2 (10:18→22:08)
[2018-05-01] MEDS: PRENATAL VITAMINS W/ FOLIC ACID TABLET (FP) PO SCH (10:18)
[2018-05-01] MEDS: NICOTINE 21 MG/24 HOURS TOPICAL PATCH TD SCH (10:18)
[2018-05-01] MEDS: LIDOCAINE 5% TOPICAL PATCH TP SCH (11:19)
[2018-05-01] MEDS ORDERED: LIDOCAINE PATCH REMOVAL MC SCH (22:00)
[2018-05-01] MEDS: THIAMINE HCL 100 MG TABLET (FP) PO SCH (22:08)
[2018-05-01] MEDS: MELATONIN 5 MG TABLETS PO PRN (22:10)
[2018-05-02] MEDS ORDERED: METHADONE HCL 5 MG TABLET (FOR DETOX USE ONLY) PO SCH (06:00)
--- NOTE | 2018-05-02 08:17 | PN ---
S Progress Note (SOAP) Subjective: alert,no complaint Objective: 05/02/18 08:16 Vital Signs Temperature 98.2 F 05/02/18 06:31 Pulse Rate 81 05/02/18 06:31 Respiratory Rate 18 05/02/18 06:31 Blood Pressure 120/67 05/02/18 06:31 O2 Sat by Pulse Oximetry (%) Assessment: 05/02/18 08:16 detox completed,no withdrawal symptom Plan: discharge today,follow up with after care program as arrangement
--- NOTE | 2018-05-02 08:20 | DS ---
[facility] Detox Discharge Summary Admission Date: 04/27/18 Discharge Date: 05/02/18 - History Present History: Alcohol Dependence, Opioid Dependence Additional Comments: follow up with after care program as arrangement Pertinent Past History: nicotine dependence asthma hypertension hepatitis c weight loss - Physical Exam Results Vital Signs: Vital Signs Temperature 98.2 F 05/02/18 06:31 Pulse Rate 81 05/02/18 06:31 Respiratory Rate 18 05/02/18 06:31 Blood Pressure 120/67 05/02/18 06:31 O2 Sat by Pulse Oximetry (%) Pertinent Admission Physical Exam Findings: withdrawal signs and symptom Vital Signs Temperature 98.2 F 05/02/18 06:31 Pulse Rate 81 05/02/18 06:31 Respiratory Rate 18 05/02/18 06:31 Blood Pressure 120/67 05/02/18 06:31 O2 Sat by Pulse Oximetry (%) Laboratory Last Values WBC 4.0 K/mm3 (4.0-10.0) 04/28/18 06:00 RBC 3.56 M/mm3 (3.60-5.2) L 04/28/18 06:00 Hgb 10.6 GM/dL (10.7-15.3) L 04/28/18 06:00 Hct 32.8 % (32.4-45.2) 04/28/18 06:00 MCV 92.3 fl (80-96) D 04/28/18 06:00 MCH 29.9 pg (25.7-33.7) D 04/28/18 06:00 MCHC 32.4 g/dl (32.0-36.0) 04/28/18 06:00 RDW 16.9 % (11.6-15.6) H 04/28/18 06:00 Plt Count 138 K/MM3 (134-434) D 04/28/18 06:00 MPV 9.4 fl (7.5-11.1) 04/28/18 06:00 Sodium 142 mmol/L (136-145) 04/28/18 06:00 Potassium 3.6 mmol/L (3.5-5.1) 04/28/18 06:00 Chloride 106 mmol/L (98-107) 04/28/18 06:00 Carbon Dioxide 25 mmol/L (21-32) 04/28/18 06:00 Anion Gap 11 MMOL/L (8-16) 04/28/18 06:00 BUN 4 mg/dL (7-18) L 04/28/18 06:00 Creatinine 0.4 mg/dL (0.55-1.02) L 04/28/18 06:00 Creat Clearance w eGFR > 60 (>60) 04/28/18 06:00 Random Glucose 166 mg/dL (74-106) H 04/28/18 06:00 Calcium 8.5 mg/dL (8.5-10.1) 04/28/18 06:00 Total Bilirubin 1.8 mg/dL (0.2-1.0) H 04/28/18 06:00 AST 103 U/L (15-37) H 04/28/18 06:00 ALT 37 U/L (12-78) 04/28/18 06:00 Alkaline Phosphatase 228 U/L (45-117) H 04/28/18 06:00 Total Protein 8.0 g/dl (6.4-8.2) 04/28/18 06:00 Albumin 3.3 g/dl (3.4-5.0) L 04/28/18 06:00 Urine Color Straw 04/27/18 15:41 Urine Appearance Clear 04/27/18 15:41 Urine pH 9.0 (5.0-8.0) H 04/27/18 15:41 Ur Specific [place] 1.028 (1.001-1.035) 04/27/18 15:41 Urine Protein Negative (NEGATIVE) 04/27/18 15:41 Urine Glucose (UA) Negative (NEGATIVE) 04/27/18 15:41 Urine Ketones Negative (NEGATIVE) 04/27/18 15:41 Urine Blood Negative (NEGATIVE) 04/27/18 15:41 Urine Nitrite Negative (NEGATIVE) 04/27/18 15:41 Urine Bilirubin Negative (<2.0 mg/dL) 04/27/18 15:41 Urine Urobilinogen Negative mg/dL (0.2-1.0) 04/27/18 15:41 Ur Leukocyte Esterase Negative (NEGATIVE) 04/27/18 15:41 RPR Titer Nonreactive (NONREACTIVE) 04/28/18 06:00 - Treatment Hospital Course: Detox Protocol Followed, Detoxed Safely, Responded well, Discharged Condition Good, Rehab Referral Accepted Patient has Accepted [facility] Ref[facility] - Medication Discharge Medications: Ambulatory Orders NK [No Known Home Medication] 01/22/15 - Diagnosis (1) Opioid dependence with withdrawal Current Visit: No Status: Acute (2) Alcohol dependence with uncomplicated withdrawal Current Visit: No Status: Acute (3) Nicotine dependence Current Visit: No Status: Acute Qualifiers: Nicotine product type: cigarettes Substance use status: uncomplicated Qualified Code(s): F17.210 - Nicotine dependence, cigarettes, uncomplicated (4) Anxiety and depression Current Visit: No Status: Chronic (5) Asthma Current Visit: No Status: Chronic Qualifiers: Asthma severity: mild Asthma persistence: intermittent Asthma complication type: with status asthmaticus Qualified Code(s): J45.22 - Mild intermittent asthma with status asthmaticus (6) HTN (hypertension) Current Visit: No Status: Chronic Qualifiers: Hypertension type: essential hypertension Qualified Code(s): I10 - Essential (primary) hypertension (7) Hepatitis C Current Visit: No Status: Chronic Qualifiers: Viral hepatitis chronicity: carrier Qualified Code(s): B18.2 - Chronic viral hepatitis C (8) Weight loss Current Visit: Yes Status: Acute - AMA Did Patient Leave Against Medical Advice: No
[2018-05-02 09:09] VITALS: BP 109/50; PULSE 75; TEMP 98.4
[2018-05-02] MEDS: PRENATAL VITAMINS W/ FOLIC ACID TABLET (FP) PO SCH (10:25)
[2018-05-02] MEDS: NICOTINE 21 MG/24 HOURS TOPICAL PATCH TD SCH (10:26)
[2018-05-02] MEDS: cloNIDine HCL 0.1 MG TABLET PO SCH (10:26)
[2018-05-02] MEDS: LIDOCAINE 5% TOPICAL PATCH TP SCH (10:48)
== END 2018-05-02 11:10 | disposition other institution (70) | DRG 773 ==
LOC: YASAS 11:36 → Y6N 13:07
PROVIDERS: ADMIT Surgery; ATTEND Surgery
PROC: HZ2ZZZZ Detoxification Services for Substance Abuse Treatment (ICD-10-PCS; principal; 2018-04-27)
DX: F11.23 Opioid dependence with withdrawal (principal); F10.230 Alcohol dependence with withdrawal, uncomplicated; F17.210 Nicotine dependence, cigarettes, uncomplicated; F41.8 Other specified anxiety disorders; I10 Essential (primary) hypertension; J45.22 Mild intermittent asthma with status asthmaticus; B18.2 Chronic viral hepatitis C; R00.0 Tachycardia, unspecified; R16.0 Hepatomegaly, not elsewhere classified; K76.89 Other specified diseases of liver; Z87.898 Personal history of other specified conditions; Z59.0 Homelessness
CPT/HCPCS: 36415; 80053; 81003; 85027; 86593; 93005; 93010; J0735